=== PATIENT | female | born 1970 | race Caucasian/White ===

== ENCOUNTER 2019-07-04 07:36 | Day surgery (SDC) | payer OTHER ==
[2019-07-03 08:45] VITALS: BMI 31.6
[2019-07-04] MEDS ORDERED: Thrombin 5000 UNITS/5 ML VIAL ONE (09:06)
[2019-07-04] MEDS ORDERED: Clindamycin/D5W 900 mg/50 ml Premix Bag ONE (09:14)
[2019-07-04] MEDS ORDERED: Levofloxacin 500 mg/D5W 100 ml Premix Bag ONE (09:14)
[2019-07-04 09:19] LABS: #Basophils 0.1 thou/uL (0.0-0.2); #Eosinphils 0.2 thou/uL (0.0-0.7); #Lymphocytes 3.1 thou/uL (1.20-3.40); #Monocytes 0.6 thou/uL (0.11-0.59); #Neutrophils 3.3 thou/uL (1.40-6.50); %Basophils 1.1 % (0.0-1.0); %Eosinophils 2.2 % (0.0-10.0); %Monocytes 8.4 % (0.0-10.0); %Neutrophils 45.3 % (42.0-75.0); Hemoglobin 13.1 g/dL (12.0-16.0); Mean Corpuscular HGB CONC 32.4 g/dL (32.0-36.0); Mean Corpuscular Hemoglobin 31.3 pg (27.0-31.0); Mean Corpuscular Volume 96.6 fL (78.0-98.0); Platelet Count 273 thou/uL (130-400); RBC Distribution Width 11.7 % (11.5-14.5); Red Blood Cell (RBC) Count 4.19 mill/uL (4.20-5.40); White Blood Cell (WBC) Count 7.2 thou/uL (4.8-10.8)
[2019-07-04 09:27] LABS: Anion Gap 12 mmol/L (10-20); BUN (Urea Nitrogen) 15 mg/dL (7.0-18.7); Calc. Creatinine Clearance 135 mL/min (70-130); Calcium 9.5 mg/dL (7.8-10.44); Carbon Dioxide 28 mmol/L (22-29); Chloride 103 mmol/L (98-107); Estimated GFR-MDRD 90; Glucose 89 mg/dL (70-105); Potassium 3.8 mmol/L (3.5-5.1); Sodium 139 mmol/L (136-145)
[2019-07-04 09:34] LABS: INR-International Normal Ratio 0.9; Prothrombin Time 12.1 SEC (12.0-14.7)
[2019-07-04] MEDS ORDERED: HYDROmorphone 0.5 MG/0.5 ML SYRINGE ONE (09:37)
[2019-07-04] MEDS ORDERED: Fentanyl 100 MCG/2 ML VIAL ONE ×3 (09:37→12:30)
[2019-07-04] MEDS ORDERED: Midazolam HCl 2 mg/2 ml Vial ONE (10:02)
[2019-07-04] MEDS ORDERED: Mag-Al 1200 mg/1200 mg/30 ML UDCUP PO PRN (12:04)
[2019-07-04] MEDS ORDERED: Morphine 2 MG/ML SYRINGE SLOW IVP PRN (12:04)
[2019-07-04] MEDS ORDERED: Acetaminophen/Codeine 30-300mg Tablet PO PRN (12:04)
[2019-07-04] MEDS ORDERED: traMADol HCl 50 MG TAB PO PRN (12:04)
[2019-07-04] MEDS ORDERED: Ondansetron PF 4 MG/2 ML Vial IVP PRN (12:04)
[2019-07-04] MEDS ORDERED: Fleet Enema 133 ML BOT PR PRN (12:04)
[2019-07-04] MEDS ORDERED: Bisacodyl 10 MG SUPP PR PRN (12:04)
[2019-07-04] MEDS ORDERED: Acetaminophen 325 MG TAB PO PRN (12:04)
[2019-07-04] MEDS ORDERED: Milk Of Magnesia 30 ML UDCUP PO PRN (12:04)
[2019-07-04] MEDS ORDERED: Ondansetron HCl/PF 4 MG/2 ML Vial IVP PRN (12:43)
[2019-07-04] MEDS ORDERED: Promethazine HCl 25 MG/ML VIAL IM PRN (12:43)
[2019-07-04] MEDS ORDERED: Promethazine HCl 25 MG/ML VIAL SLOW IVP PRN (12:43)
[2019-07-04] MEDS: tiZANidine HCl 4 MG TAB PO PRN ×2 (13:39→20:32)
[2019-07-04] MEDS: HYDROcodone/Acetaminophen 7.5/325 mg Tablet PO PRN ×3 (13:42→22:36)
[2019-07-04] MEDS ORDERED: Lidocaine 1% PF 5 ML VIAL ONE (14:51)
[2019-07-04] MEDS ORDERED: Glycopyrrolate 0.2 MG/ML 5 ML SYRINGE ONE (14:51)
[2019-07-04] MEDS ORDERED: Esmolol 100 MG/10 ML VIAL ONE (14:51)
[2019-07-04] MEDS ORDERED: PROPOFOL 200 MG/20 ML VIAL ONE (14:51)
[2019-07-04] MEDS ORDERED: PHENYLEPHRINE-NS 100 MCG/ML 10 ML SYRINGE ONE (14:51)
[2019-07-04] MEDS ORDERED: Ondansetron PF 4 MG/2 ML Vial ONE (14:51)
[2019-07-04] MEDS: Sodium Chloride 0.9% 1,000 ML IV SCH (15:09)
[2019-07-04] MEDS: Clindamycin/D5W 900 MG in Premix Bag 1 BAG IVPB SCH (18:24)
[2019-07-04] MEDS ORDERED: Amitriptyline HCl 25 MG TAB PO SCH (21:00)
[2019-07-04] MEDS ORDERED: Atorvastatin Calcium 10 MG TAB PO SCH (21:00)
[2019-07-04] MEDS ORDERED: Citalopram 20 MG TAB PO SCH (21:00)
[2019-07-04] MEDS ORDERED: Valsartan 80 MG TAB PO SCH (21:00)
[2019-07-04] MEDS: cycloSPORINE 0.05% Ophthalmic Droperette EA EYE SCH (22:29)
[2019-07-05] MEDS: Clindamycin/D5W 900 MG in Premix Bag 1 BAG IVPB SCH (02:38)
[2019-07-05] MEDS: HYDROcodone/Acetaminophen 7.5/325 mg Tablet PO PRN ×2 (02:40→07:37)
[2019-07-05] MEDS: Sodium Chloride 0.9% 1,000 ML IV SCH (02:48)
[2019-07-05 07:45] VITALS: BP 118/80; TEMP 97.7
[2019-07-05] MEDS: tiZANidine HCl 4 MG TAB PO PRN (07:47)
[2019-07-05] MEDS: cycloSPORINE 0.05% Ophthalmic Droperette EA EYE SCH (09:03)
--- NOTE | 2019-07-06 02:13 | DIS ---
DATE OF ADMISSION: 07/04/2019 DATE OF DISCHARGE: 07/05/2019 DISCHARGE DIAGNOSES: 1. Lumbar stenosis. 2. Lumbar radiculopathy. 3. Status post L4-L5 laminectomy, partial facetectomies, and foraminotomies on . HOSPITAL COURSE: Ms. Caballero is a pleasant 48-year-old female who is postop day #1 after undergoing an L4-L5 laminectomy, partial facetectomies, and foraminotomies yesterday. She reports that she is doing well today, and her only complaint is low back pain. She states that she is able to sleep for some period during the night, however she did have low back painthat made it difficult to get comfortable. She denies any pain, paresthesias, or weakness in her legs. She states that she has been ambulating about the hallways without difficulty. She states that she has been urinating and tolerating food. She has good strength throughout her arms and legs, and is moving all extremities easily. She states that she wishes to go home today. PHYSICAL EXAMINATION: The patient is awake, alert, appropriate. No acute distress, resting comfortably in bed. She has full strength in her bilateral lower extremities. She is moving her legs without difficulty. Sensation to light touch is intact and equal bilaterally. The patient is stable for discharge home at this time. Discussed postoperative restrictions and wound care instructions. The patient was provided with appropriate postoperative pain medications. Discussed with the patient that she should remain off sulfasalazine for 14 days postop, however she may continue to take Celebrex at this time. We also discussed that she should remain off Remicade infusion for 6 weeks postop. We will arrange for appropriate postoperative followup in our clinic on an outpatient basis. The patient will call sooner with any questions or concerns. She is stable for discharge home at this time. Job ID: [id number] [facility]
--- NOTE | 2019-07-08 11:12 | OP ---
DATE OF PROCEDURE: 07/04/2019 BUSINESS PROCESS EXPERT: Berenice Starr PA-C PREPROCEDURE DIAGNOSIS: Lumbar stenosis with low back and leg pain. POSTPROCEDURE DIAGNOSIS: Lumbar stenosis with low back and leg pain. PROCEDURE PERFORMED: L4-L5 laminectomy, partial facetectomy, and foraminotomies. DESCRIPTION OF PROCEDURE: After informed consent was obtained from the patient, the patient was brought to the OR. Proper patient, pause, and identification were carried out. She was placed under excellent general endotracheal anesthesia and positioned prone on the OR table. All appropriate points were padded. We identified the L4-L5 dorsal spines and lamina. A linear renae was made over this region. This area was sterilely cleansed, prepared, and draped. Proper patient, pause, and identification were carried out. The wound was then opened with a combination of sharp, monopolar, and blunt dissection. The L4-L5 dorsal spine and laminae were exposed. We then performed L4-L5 laminectomy, partial facetectomy, and foraminotomies. Following localization, copious irrigation occurred throughout as did maximizing hemostasis. We were very pleased with our decompression. The wound was maximally hemostasis and closed in anatomic layers following sprinkling of vancomycin powder. The patient emerged from anesthesia. Job ID: [id number]
== END 2019-07-05 10:55 | disposition home or self-care (01) ==
LOC: SDC 07:36 → SURG A 12:11 → SDC 07-05 10:55
PROVIDERS: ATTEND Surgery
PROC: 01NB0ZZ Release Lumbar Nerve, Open Approach (ICD-10-PCS; principal; 2019-07-05)
DX: M48.062 Spinal stenosis, lumbar region with neurogenic claudication (principal); M54.16 Radiculopathy, lumbar region; M45.6 Ankylosing spondylitis lumbar region; K50.90 Crohn's disease, unspecified, without complications; I10 Essential (primary) hypertension; E78.5 Hyperlipidemia, unspecified; Z88.0 Allergy status to penicillin; Z88.1 Allergy status to other antibiotic agents; Z88.6 Allergy status to analgesic agent
CPT/HCPCS: 36415; 76000; 80048; 85025; 85610; 85730; 93005; 93010; J1170; J1956; J2001; J2250; J2405; J2704; J3010; J3370; J3490

== ENCOUNTER 2021-06-07 08:43 | Outpatient (CLI) | payer OTHER | END 2021-06-07 08:44 | disposition home or self-care (01) | LOC: DTY/OP 08:43 | PROVIDERS: ATTEND Internal Medicine Gastroenterology | DX: K76.0 Fatty (change of) liver, not elsewhere classified (principal) | CPT/HCPCS: 97802 ==